=== PATIENT | male | born 1945 | race Caucasian/White ===

== ENCOUNTER 2016-10-25 13:20 | Emergency (ER) | payer MEDICARE ==
[~2016-10-25] VITALS: Ht 188 cm; Wt 111.2 kg
[2016-10-25 13:25] VITALS: BP 173/112; PULSE 98; RESP 17; TEMP 98.8; O2SAT 96
[2016-10-25] MEDS ORDERED: LISI40TA PO (13:40)
[2016-10-25] MEDS ORDERED: ASPI1TAB69 PO (13:40)
[2016-10-25] MEDS ORDERED: LEVO50TA4 PO (13:40)
--- NOTE | 2016-10-25 13:42 | PD ---
HPI Chief Complaint: Laceration/Skin Injury Time Seen by Provider: 13:34 Travel History International Travel<30 days: No Contact w/Intl Traveler<30days: No Traveled to known affect area: No History of Present Illness HPI This is a 71-year-old male on 81 mg aspirin a day who presents for evaluation after a fall. He reports a prior to arrival he was carrying a printer down some stairs any tripped on the stairs and fell forward, striking his chin against the printer. He now has a laceration to the inferior aspect of the chin as well as a mild occipital headache. Symptoms are aggravated by movement. He denies any neck pain, loss of consciousness, confusion or amnesia , nausea or vomiting, trismus, injury to the teeth. His is concerned because of the mechanism of injury being a forced extension on the neck that he may have a neck injury. Last tetanus vaccination unknown. No other complaints. PFSH Past Medical History ?: Not Social History Alcohol Use: No Tobacco Use: No Allergies-Medications (Allergen,Severity, Reaction): Coded Allergies: Penicillin (Verified Allergy, Severe, HIVES, 10/25/16) Reported Meds & Prescriptions Reported Meds & Active Scripts Active Reported Aspirin 81 Mg Tabdr 81 Mg PO DAILY Levothyroxine (Levothyroxine Sodium) 50 Mcg Tab 50 Mcg PO DAILY Lisinopril 40 Mg Tab 40 Mg PO DAILY Review of Systems Except as stated in HPI: all other systems reviewed are Neg Physical Exam Narrative GENERAL: Well-developed well-nourished male in no acute distress SKIN: Warm and dry. 2.5 cm linear laceration inferior chin. HEAD: Atraumatic. Normocephalic. EYES: Pupils equal and round. No scleral icterus. No injection or drainage. ENT: No nasal bleeding or discharge. Mucous membranes pink and moist. Normal dentition. No intraoral injury. NECK: Trachea midline. No JVD. CARDIOVASCULAR: Regular rate and rhythm. No murmur appreciated. RESPIRATORY: No accessory muscle use. Clear to auscultation. Breath sounds equal bilaterally. MUSCULOSKELETAL: No obvious deformities. No tenderness to palpation along the cervical or thoracic midline spine. No tenderness to palpation of the facial bones. NEUROLOGICAL: Awake and alert. No obvious cranial nerve deficits. Motor grossly within normal limits. Normal speech. PSYCHIATRIC: Appropriate mood and affect; insight and judgment normal. Data Data Last Documented VS Vital Signs Date Time Temp Pulse Resp B/P Pulse Ox O2 Delivery O2 Flow Rate FiO2 10/25/16 13:25 98.8 98 17 173/[address] Cerv Spine W/O Contrast (10/25/16 ) Ct Brain W/O Iv Contrast(Rout) (10/25/16 ) Tetanus/Diphtheria Tox Adult (Tetanus/Di (10/25/16 13:45) Lidocai-Epi 1%-1:100,000 Inj (Xylocaine- (10/25/16 13:45) Lidocai-Epi 1%-1:100,000 Inj (Xylocaine- (10/25/16 13:45) MDM Medical Decision Making Medical Screen Exam Complete: Yes Emergency Medical Condition: Yes Medical Record Reviewed: Yes Differential Diagnosis Laceration, fracture, closed head injury, intracranial hemorrhage Narrative Course 71-year-old male on aspirin presents after tripping on a step and falling forward, striking his chin on the printer that he was carrying. He has mild occipital headache as well as laceration to the chin. Because of the mechanism of injury, CT brain and cervical spine up and ordered. The laceration will be repaired with sutures, he verbally consents. Tetanus status updated. CT imaging reveals no acute abnormalities. The laceration was repaired with sutures, he verbally consented. He is stable for discharge. Procedures Procedure Narrative LACERATION LOCATION: Chin LENGTH: 3 cm NUMBER OF STITCHES/NICA: 8 REPAIR: The area of the laceration was prepped with Betadine and sterilely draped. The laceration was infiltrated with 1% lidocaine with epinephrine. The wound was copiously irrigated and explored without evidence of foreign body , tendon injury or neurovascular injury. The wound was closed using 5-0 prolene simple interrupted. This was a single layer repair. A sterile dressing was applied. The patient was advised to keep the dressing clean and dry. Patient tolerated the procedure well. Diagnosis Primary Impression: Laceration of chin Qualified Code: S01.81XA - Laceration of chin, initial encounter Additional Instructions: Wash daily with soap and water and apply antibiotic cream daily. Return in 5-7 days for suture removal. Med/Other Pt SpecificInfo: Wound Care Disposition: DISCHARGE HOME Condition: Stable Mike Goetz Oct 25, 2016 13:42
[2016-10-25] MEDS ORDERED: TETANUS/DIPHTHERIA TOXOID ADULT 0.5 ML VIAL IM ONE (13:45)
[2016-10-25] MEDS ORDERED: LIDOCAINE 1%/EPINEPHrine 1:100,000 SOLN 20 ML VIAL INFIL ONE ×2 (13:45)
--- NOTE | 2016-10-25 14:20 | RADHPO ---
EXAM DATE/TIME: 10/25/2016 13:55 [facility] COMPARISON: No previous studies available for comparison. INDICATIONS : Fell and hit chin. Head and neck pain. RADIATION DOSE: 64.91 CTDIvol (mGy) MEDICAL HISTORY : Venous insufficiency. SURGICAL HISTORY : None. ENCOUNTER: Initial ACUITY: 1 day PAIN SCALE: 3/10 LOCATION: Bilateral cranial TECHNIQUE: Multiple contiguous axial images were obtained of the head. Using automated exposure control and adj ustment of the mA and/or kV according to patient size, radiation dose was kept as low as reasonably a chievable to obtain optimal diagnostic quality images. FINDINGS: CEREBRUM: The ventricles are normal for age. No evidence of midline shift, mass lesion, hemorrhage or acute in farction. No extra-axial fluid collections are seen. POSTERIOR FOSSA: The cerebellum and brainstem are intact. The 4th ventricle is midline. The cerebellopontine angle i s unremarkable. EXTRACRANIAL: The visualized portion of the orbits is intact. SKULL: The calvaria is intact. No evidence of skull fracture. CONCLUSION: Unremarkable noncontrast head CT for age. Bj Babin MD on October 25, 2016 at 14:16 Board Certified Radiologist. This report was verified electronically.
--- NOTE | 2016-10-25 14:22 | RADHPO ---
EXAM DATE/TIME: 10/25/2016 13:55 [facility] COMPARISON: No previous studies available for comparison. INDICATIONS : Fell and hit chin. Head and neck pain. RADIATION DOSE: 26.53 CTDIvol (mGy) MEDICAL HISTORY : None SURGICAL HISTORY : None. ENCOUNTER: Initial ACUITY: 1 day PAIN SCALE: 4/10 LOCATION: Bilateral neck TECHNIQUE: Volumetric scanning of the cervical spine was performed. Multiplanar reconstructions in the sagittal, coronal and oblique axial planes were performed. Using automated exposure control and adjustment o f the mA and/or kV according to patient size, radiation dose was kept as low as reasonably achievable to obtain optimal diagnostic quality images. FINDINGS: VERTEBRAE: Normal vertebral body height. No acute bony fracture. There are primary degenerative changes througho ut the cervical spine. ALIGNMENT: No evidence of subluxation. C2-C3: The bony spinal canal is normal in size. No evidence of disc bulge or herniation. The neural forami na are bilaterally patent. C3-C4: There is central disc bulging with disc osteophyte complex. The neural brown are patent bilaterally. C4-C5: The bony spinal canal is normal in size. No evidence of disc bulge or herniation. The neural forami na are bilaterally patent. C5-C6: The bony spinal canal is normal in size. No evidence of disc bulge or herniation. The neural forami na are bilaterally patent. Bilateral facet arthritis. C6-C7: The bony spinal canal is normal in size. No evidence of disc bulge or herniation. The neural forami na are bilaterally patent. Bilateral facet arthritis, left greater than right. C7-T1: The bony spinal canal is normal in size. No evidence of disc bulge or herniation. The neural forami na are bilaterally patent. CONCLUSION: 1. No acute bony fracture. 2. Primary bony degenerative changes throughout the cervical spine. 3. Focal central disc bulging with disc osteophyte complex at C3-4. Alexei Godoy MD on October 25, 2016 at 14:18 Board Certified Radiologist. This report was verified electronically.
== END 2016-10-25 14:52 | disposition home or self-care (01) ==
LOC: PHEFT 13:20
DX: S01.81XA Laceration without foreign body of other part of head, initial encounter (principal); R51 Headache; Z23 Encounter for immunization; W10.9XXA Fall (on) (from) unspecified stairs and steps, initial encounter; Y93.01 Activity, walking, marching and hiking; Y92.009 Unspecified place in unspecified non-institutional (private) residence as the place of occurrence of the external cause; Y99.8 Other external cause status
CPT/HCPCS: 12013; 70450; 72125; 90471; 90714